=== PATIENT | female | born 1995 | race African-American/Black ===

== ENCOUNTER 2020-06-19 13:22 | Emergency (ER) | payer OTHER ==
[~2020-06-19 13:22] MED LIST: BACTRIM DS TAB1 EACH PO; MEDROL 4MG DOSEP4 MG PO; PRENATAL FORMU1 EACH PO; ZOFRAN8 MG PO
[2020-06-19 15:17] LABS: BASOPHIL 0.5 % (0-2); EOSINOPHIL 2.2 % (0-5); HGB 11.8 g/dl (12.5-16.0); LYMPHOCYTE 24.6 % (15-48); MCH 25.9 pg (25.0-31.0); MCHC 33.7 g/dL (32.0-36.0); MCV 76.9 fL (78.0-100.0); MONOCYTE 5.9 % (0-12); MPV 9.8 fL (6.0-9.5); NEUTROPHIL 66.3 % (41-80); NRBC 0; PLT 360 K/uL (150-400); RBC 4.55 M/uL (4.20-5.40); RDW 18.4 % (11.5-14.0); WBC 9.3 K/uL (4.0-10.5)
[2020-06-19 15:33] LABS: ALBUMIN 3.5 g/dL (3.4-5.0); BILIRUBIN - TOTAL 0.4 mg/dL (0.2-1.0); BUN/CREAT RATIO (CALC) 9.9 RATIO; CREATININE 0.71 mg/dL (0.51-0.95); GLOBULIN (CALCULATION) 3.9 g/dL; POTASSIUM 4.1 mmol/L (3.5-5.1); TOTAL PROTEIN 7.4 g/dL (6.4-8.2)
[2020-06-23 18:10] LABS: CHLAMYDIA TRACHOMATIS, NAA Positive (Negative); NEISSERIA GONORRHOEAE, NAA Negative (Negative)
== END 2020-06-19 17:30 | disposition home or self-care (01) ==
LOC: FER 13:22
PROVIDERS: Emergency Medicine; Nurse Practitioner Family
DX: O20.0 Threatened abortion (principal); Z3A.01 Less than 8 weeks gestation of pregnancy
CPT/HCPCS: 36415; 80053; 84702; 85025; 86900; 86901; 87491; 87591; 99284

== ENCOUNTER 2020-09-19 09:46 | Emergency (ER) | payer OTHER | END 2020-09-19 13:05 | disposition home or self-care (01) | LOC: FER 09:46 | DX: O99.892 Other specified diseases and conditions complicating childbirth (principal); R51.9 Headache, unspecified; R09.81 Nasal congestion; Z20.822 Contact with and (suspected) exposure to COVID-19; Z3A.18 18 weeks gestation of pregnancy | CPT/HCPCS: 99284; U0002 ==

== ENCOUNTER 2020-09-24 19:07 | Emergency (ER) | payer OTHER | END 2020-09-24 21:18 | disposition home or self-care (01) | LOC: FER 19:07 | DX: O99.342 Other mental disorders complicating pregnancy, second trimester (principal); F41.0 Panic disorder [episodic paroxysmal anxiety]; Z3A.18 18 weeks gestation of pregnancy | CPT/HCPCS: 99283; J3410 ==

== ENCOUNTER 2021-02-10 13:25 | Inpatient (IN) | payer OTHER ==
[~2021-02-10] VITALS: Ht 157.5 cm; Wt 75.7 kg
[~2021-02-10 13:25] MED LIST changes: +ACETAMINOPHEN325 MG PO; +KEFLEX250 MG PO
[2021-02-10 14:56] LABS: HCT 31.3 % (37.0-47.0); HGB 10.6 g/dl (12.5-16.0); MCHC 33.9 g/dL (32.0-36.0); MCV 79.8 fL (78.0-100.0); MPV 10.6 fL (6.0-9.5); RBC 3.92 M/uL (4.20-5.40); RDW 14.2 % (11.5-14.0); WBC 11.1 K/uL (4.0-10.5)
[2021-02-11 07:37] LABS: HCT 26.7 % (37.0-47.0); HGB 8.9 g/dl (12.5-16.0); MCH 27.1 pg (25.0-31.0); MCHC 33.3 g/dL (32.0-36.0); MCV 81.4 fL (78.0-100.0); MPV 10.5 fL (6.0-9.5); RBC 3.28 M/uL (4.20-5.40); RDW 14.3 % (11.5-14.0)
== END 2021-02-12 19:50 | disposition home or self-care (01) | DRG 806 ==
LOC: FOD 13:25 → FOB 13:25 → FOD 02-11 00:29 → FOB 02-11 00:30 → FOD 02-11 06:31 → FOB 02-11 06:31
PROVIDERS: ADMIT Obstetrics & Gynecology
PROC: 10E0XZZ Delivery of Products of Conception, External Approach (ICD-10-PCS; principal; 2021-02-10)
PROC: 0KQM0ZZ Repair Perineum Muscle, Open Approach (ICD-10-PCS; 2021-02-10)
DX: O99.02 Anemia complicating childbirth (principal); D62 Acute posthemorrhagic anemia; Z37.0 Single live birth; Z3A.38 38 weeks gestation of pregnancy; O70.1 Second degree perineal laceration during delivery; O69.81X0 Labor and delivery complicated by cord around neck, without compression, not applicable or unspecified; Z20.822 Contact with and (suspected) exposure to COVID-19
CPT/HCPCS: 36415; 84112; J0595; J2916; J7120; U0002

== ENCOUNTER 2021-03-05 10:48 | Emergency (ER) | payer OTHER ==
[2021-03-05 14:00] LABS: CORONAVIRUS 2019 SARS-COV-2 NEGATIVE (NEGATIVE); INFLUENZA A NAA NEGATIVE (NEGATIVE)
== END 2021-03-05 14:50 | disposition home or self-care (01) ==
LOC: FER 10:48
PROVIDERS: Internal Medicine
DX: J06.9 Acute upper respiratory infection, unspecified (principal); J45.909 Unspecified asthma, uncomplicated; Z20.822 Contact with and (suspected) exposure to COVID-19; Z87.891 Personal history of nicotine dependence
CPT/HCPCS: 99283; U0002

== ENCOUNTER 2021-04-26 12:42 | Emergency (ER) | payer OTHER ==
[2021-04-26 13:27] LABS: BILIRUBIN NEGATIVE (NEGATIVE); BLOOD NEGATIVE Ery/uL (NEGATIVE); CLARITY CLEAR (CLEAR); COLOR YELLOW (YELLOW); GLUCOSE (U) NORMAL (NORMAL); LEUKOCYTES 2+ Leu/uL (NEGATIVE); NITRITE NEGATIVE (NEGATIVE); PROTEIN NEGATIVE (NEGATIVE); SPECIFIC GRAVITY 1.015 (1.001-1.030); UROBILINOGEN 0.2 mg/dL (0.2-1.0); pH 7.5 (5.0-9.0)
[2021-04-26 13:36] LABS: BACTERIA 1+; URINARY RBC RARE
[2021-04-26 13:43] LABS: BASOPHIL 0.5 % (0-2); HCT 36.6 % (37.0-47.0); HGB 12.4 g/dl (12.5-16.0); LYMPHOCYTE 29.2 % (15-48); MCH 27.5 pg (25.0-31.0); MCHC 33.9 g/dL (32.0-36.0); MCV 81.2 fL (78.0-100.0); MONOCYTE 5.3 % (0-12); MPV 10.2 fL (6.0-9.5); NEUTROPHIL 60.8 % (41-80); NRBC 0; PLT 292 K/uL (150-400); RBC 4.51 M/uL (4.20-5.40); RDW 16.9 % (11.5-14.0); WBC 5.7 K/uL (4.0-10.5)
[2021-04-26 13:57] LABS: BUN/CREAT RATIO (CALC) 8.5 RATIO; CREATININE 0.71 mg/dL (0.51-0.95)
[2021-04-26 14:07] LABS: CORONAVIRUS 2019 SARS-COV-2 NEGATIVE (NEGATIVE); INFLUENZA A NAA NEGATIVE (NEGATIVE)
[2021-04-26] MEDS ORDERED: MACROBID100 MG PO (14:35)
== END 2021-04-26 14:45 | disposition home or self-care (01) ==
LOC: FER 12:42
PROVIDERS: Nurse Practitioner Family
DX: N39.0 Urinary tract infection, site not specified (principal); J45.909 Unspecified asthma, uncomplicated; Z20.822 Contact with and (suspected) exposure to COVID-19
CPT/HCPCS: 36415; 80048; 81001; 84702; 85025; 99284; U0002